=== PATIENT | female | born 1985 | race Caucasian/White ===

== ENCOUNTER 2018-05-03 11:09 | Outpatient (CLI) | payer OTHER ==
[2018-05-03 11:36] VITALS: BP 106/67; PULSE 67; RESP 16; TEMP 98.3
--- NOTE | 2018-06-20 10:52 | P.MSEPDOC ---
Presenting Problems - Arrival Data Date of Arrival on Unit: 05/03/18 Time of Arrival on Unit: 11:18 Mode of Transport: Ambulatory - Complaint OB-Reason for Admission/Chief Complaint: Other Comment: pt c/o cramping and questionable rom. pt states she felt a pop yesterday and had a little bit of fluid but pt denies any leaking at this time Medical History - Information : 5 Para: 4 Term: 4 : 0 Abortions: Spontaneous or Elective: 0 Number of Living Children: 4 - Gestational Age Gestational Age by LAURI (wks/days): 31 Weeks and 4 Days Review of Systems - Review of Systems Constitutional: No problems Breast: No problems ENT: No problems Cardiovascular: No problems Respiratory: No problems Gastrointestinal: No problems Genitourinary: No problems Musculoskeletal: No problems Neurological: No problems Skin: No problems Vital Signs - Temperature Temperature: 98.3 F Temperature Source: Oral - Pulse Right Brachial Pulse Rate: 67 Pulse Assessment Method: Automatic Cuff - Respirations Respiratory Rate: 16 Oxygen Delivery Method: Room Air O2 Sat by Pulse Oximetry: 100 - Blood Pressure Right Arm Blood Pressure: 106/67 Blood Pressure Mean: 80 Blood Pressure Source: Automatic Cuff Medical Screen Scoring (Pre) - Cervical Exam Dilation: Exam Deferred Effacement: Exam Deferred Membranes: Intact - Uterine Contractions Frequency: N/A Duration: N/A Intensity: N/A - Maternal Vital Signs Maternal Temperature: N/A Maternal Blood Pressure: N/A Signs of Preeclampsia: N/A Maternal Respirations: N/A - Pain Assessment Pain Scale Used: Numeric (1 - 10) Pain Intensity: 5 Pain Management Goal: 2 Pain Description: Throbbing Pain Frequency: Occasional Pain Duration: 45 Pain Duration Units: Minutes Pain Behavior: Vocalization Pain Aggravating Factors: Position Non-Pharmacological Interventions: Relaxation Technique - Maternal Trauma Maternal Trauma: N/A - Total Score Total Score (Pre): 0 Medical Screen Scoring (Post) - Cervical Exam Dilation: Exam Deferred Effacement: Exam Deferred Membranes: Intact - Uterine Contractions Frequency: N/A Duration: N/A Intensity: N/A - Maternal Vital Signs Maternal Temperature: N/A Maternal Blood Pressure: N/A Signs of Preeclampsia: N/A Maternal Respirations: N/A - Assessment Heart Rate: 140 Heart Rate - NICHD Category: Category I (Normal) = 0 NST: Reactive Position: N/A Station: N/A - Total Score Total Score (Post): 0 - Post Treatment Level of Risk Post Treatment Level of Risk: Low (0-5) Physician Notification (Post) - Physician Notified Physician Notified Date: 05/03/18 Physician Notified Time: 12:25 Spoke With: dr plummer New Order Received: Yes - Notification Comment Comment: amnisure negative reactive nst. no contractions. may discharge to home with instructions Disposition - Disposition OB Disposition: Discharge to home Discharge Date: 05/03/18 Discharge Time: 12:33 I agree with the RN Medical Screening Exam: Yes Risk & Benefit of care provided described in d/c instruction: Yes Diagnosis: FALSE LABOR BEFORE 37 COMPLETED WEEKS OF GEST, THIRD TRI
== END 2018-05-03 12:33 | disposition home or self-care (01) ==
LOC: FBPOP 11:09
PROVIDERS: ATTEND Obstetrics & Gynecology Obstetrics
DX: O47.03 False labor before 37 completed weeks of gestation, third trimester (principal); Z3A.31 31 weeks gestation of pregnancy
CPT/HCPCS: 59025; 84112; 99213

== ENCOUNTER 2018-05-15 13:27 | Emergency (ER) | payer OTHER ==
[2018-05-15 13:32] VITALS: RESP 18; TEMP 98.2
--- NOTE | 2018-05-15 14:22 | US ---
EXAMINATION TYPE: US venous doppler duplex LE RT DATE OF EXAM: 05/15/2018 2:14 PM COMPARISON: NONE CLINICAL HISTORY: Pain. right leg pain and ankle swelling SIDE PERFORMED: Right TECHNIQUE: The lower extremity deep venous system is examined utilizing real time linear array sonog vitaliy with graded compression, doppler sonography and color-flow sonography. VESSELS IMAGED: External Iliac Vein (EIV) Common Femoral Vein Deep Femoral Vein Greater Saphenous Vein * Femoral Vein Popliteal Vein Proximal Calf Veins (* superficial vessels) Right Leg: Negative for DVT Grayscale, color doppler, spectral doppler imaging performed of the deep veins of the right lower ext remity. There is normal flow, compressibility, vascular waveforms. IMPRESSION: No ultrasound evidence for acute DVT in the right lower extremity.
--- NOTE | 2018-05-15 14:44 | ED ---
Lower Extremity Injury HPI - General Chief Complaint: Extremity Injury, Lower Stated Complaint: possible blot clot in leg, 8 months Time Seen by Provider: 05/15/18 13:36 Source: patient Mode of arrival: ambulatory Limitations: no limitations - History of Present Illness Initial Comments: 32-year-old female 33 weeks presenting for bruising behind right knee times one day. Patient states she noticed bruising behind her right knee as well as some mild swelling of the right ankle. She states the area was tender to palpation behind the knee. Patient denies any injury or trauma. Patient denies any chest pain, shortness of breath, cough, hemoptysis, dyspnea, dyspnea on exertion nausea, vomiting, abdominal pain or any other associated symptoms. Patient states she was concerned about a blood clot and presented to her primary care provider for evaluation. She was sent to the emergency department for further imaging. Upon arrival patient's blood pressure within normal limits. Patient appears well, ambulates without difficulty. Remainder of ROS is negative, atient denies any recent fever, chills, back pain, numbness or tingling, dysuria or hematuria, constipation or diarrhea, headaches or visual changes, or any other complaints. - Related Data Home Medications Medication Instructions Recorded Confirmed No Known Home Medications 05/03/18 05/15/18 Allergies Allergy/AdvReac Type Severity Reaction Status Date / Time Penicillins Allergy Unknown Verified 05/15/18 13:49 Review of Systems ROS Statement: Those systems with pertinent positive or pertinent negative responses have been documented in the HPI. ROS Other: All systems not noted in ROS Statement are negative. Past Medical History Past Medical History: No Reported History Additional Past Medical History / Comment(s): LOW BLOOD SUGAR History of Any Multi-Drug Resistant Organisms: None Reported Past Surgical History: Tonsillectomy Additional Past Surgical History / Comment(s): ADENOIDS Past Psychological History: No Psychological Hx Reported Smoking Status: Former smoker Past Alcohol Use History: None Reported Past Drug Use History: None Reported General Exam - General Exam Comments Initial Comments: General: The patient is awake and alert, in no distress, and does not appear acutely ill. Eye: Pupils are equal, round and reactive to light, extra-ocular movements are intact. No nystagmus. There is normal conjunctiva bilaterally. No signs of icterus. Ears, nose, mouth and throat: There are moist mucous membranes and no oral lesions. Neck: The neck is supple, there is no tenderness or JVD. Cardiovascular: There is a regular rate and rhythm. No murmur, rub or gallop is appreciated. Respiratory: Lungs are clear to auscultation, respirations are non-labored, breath sounds are equal. No wheezes, stridor, rales, or rhonchi. Musculoskeletal: Normal ROM, no tenderness. Strength 5/5. Sensation intact. DP pulses equal bilaterally 2+. Small area of ecchymosis of popliteal region of right LE. Faint. Tender to touch, no mass. Neurological: A&O x 3. CN II-XII intact, There are no obvious motor or sensory deficits. Coordination appears grossly intact. Speech is normal. Skin: Skin is warm and dry and no rashes or lesions are noted. No noted lower extremity edema. No soft tissue swelling. Psychiatric: Cooperative, appropriate mood & affect, normal judgment. Limitations: no limitations Course Vital Signs 05/15/18 05/15/18 13:30 16:31 Temperature 98.2 F Pulse Rate 83 76 Respiratory 18 18 Rate Blood Pressure 99/65 100/63 O2 Sat by Pulse 99 100 Oximetry Medical Decision Making - Medical Decision Making NEGATIVE FOR DVT. NEGATIVE HOMANS SIGN. NO LOWER EXTREMITY EDEMA NOTED ON EXAM. THERE IS SMALL AREA OF ECCHYMOSIS IN THE RIGHT POPLITEAL REGION. PATIENT 'S LABS UNREMARKABLE, CONSISTENT WITH THIRD TRIMESTER . PATIENT DENIES ANY ABDOMINAL PAIN CRAMPING. BLOOD PRESSURE WITHIN NORMAL LIMITS. PATIENT BE DISCHARGED WITH FOLLOW-UP WITH PRIMARY CARE PROVIDER WE[facility]/ [facility] REGENERATOR SCHEDULED. IF SYMPTOMS PERSIST I DID RECOMMEND REPEAT DUPLEX ULTRASOUND IN 1-2 WEEKS. PATIENT IS AGREEABLE PLAN AND DISCHARGE. DENIES QUESTIONS AT THIS TIME. CASE WAS DISCUSSED WITH ATTENDING PROVIDER DR. SEWELL WHO DID REVIEW IMAGING reports, and laboratory studies. Patient discharged stable condition appearing well, with all return parameters. - Lab Data Result diagrams: 05/15/18 15:07 05/15/18 15:07 Lab Results 05/15/18 05/15/18 05/15/18 Range/Units 15:07 15: 15:07 WBC 6.4 (3.8-10.6) k/uL RBC 3.51 L (3.80-5.40) m/uL Hgb 10.9 L (11.4-16.0) gm/dL Hct 32.0 L (34.0-46.0) % MCV 91.3 (80.0-100.0) fL MCH 31.0 (25.0-35.0) pg MCHC 34.0 (31.0-37.0) g/dL RDW 13.4 (11.5-15.5) % Plt Count 140 L (150-450) k/uL Neutrophils % 71 % Lymphocytes % 21 % Monocytes % 5 % Eosinophils % 1 % Basophils % 0 % Neutrophils # 4.6 (1.3-7.7) k/uL Lymphocytes # 1.3 (1.0-4.8) k/uL Monocytes # 0.3 (0-1.0) k/uL Eosinophils # 0.0 (0-0.7) k/uL Basophils # 0.0 (0-0.2) k/uL PT 9.5 (9.0-12.0) sec INR 0.9 (<1.2) APTT 23.1 (22.0-30.0) sec Sodium 135 L (137-145) mmol/L Potassium 4.3 (3.5-5.1) mmol/L Chloride 109 H (98-107) mmol/L Carbon Dioxide 22 (22-30) mmol/L Anion Gap 4 mmol/L BUN 6 L (7-17) mg/dL Creatinine 0.49 L (0.52-1.04) mg/dL Est GFR (CKD-EPI)AfAm >90 (>60 ml/min/1.73 sqM) Est GFR (CKD-EPI)NonAf >90 (>60 ml/min/1.73 sqM) Glucose 79 (74-99) mg/dL Calcium 8.4 (8.4-10.2) mg/dL Total Bilirubin 0.6 (0.2-1.3) mg/dL AST 20 (14-36) U/L ALT 25 (9-52) U/L Alkaline Phosphatase 79 (38-126) U/L Total Protein 5.6 L (6.3-8.2) g/dL Albumin 3.0 L (3.5-5.0) g/dL Disposition Clinical Impression: Ecchymosis Disposition: HOME SELF-CARE Condition: Good Additional Instructions: Please follow-up with family doctor in the next 2 days, if symptoms persist please repeat US of ARTIS in 1-2 weeks. Please return to emergency room if the symptoms increase or worsen or for any other concerns, as discussed. Is patient prescribed a controlled substance at d/c from ED?: No Referrals: Sharita Navarro MD [Primary Care Provider] - 1-2 days Time of Disposition: 16:00
[2018-05-15 15:28] LABS: Basophils % (A) 0 %; Eosinophils % (A) 1 %; HGB 10.9 gm/dL (11.4-16.0); Lymphocytes # (A) 1.3 k/uL (1.0-4.8); Lymphocytes % (A) 21 %; MCV 91.3 fL (80.0-100.0); Mean Platelet Volume 8.7; Monocytes # (A) 0.3 k/uL (0-1.0); Monocytes % (A) 5 %; Neutrophils # (A) 4.6 k/uL (1.3-7.7); Neutrophils % (A) 71 %; Platelet Count 140 k/uL (150-450); RBC 3.51 m/uL (3.80-5.40); RDW 13.4 % (11.5-15.5); WBC 6.4 k/uL (3.8-10.6)
[2018-05-15 15:40] LABS: INR 0.9 (<1.2); Partial Thromboplastin Time 23.1 sec (22.0-30.0); Prothrombin Time 9.5 sec (9.0-12.0)
[2018-05-15 15:44] LABS: ALT 25 U/L (9-52); AST 20 U/L (14-36); Alkaline Phosphatase 79 U/L (38-126); Anion Gap 4 mmol/L; Blood Urea Nitrogen 6 mg/dL (7-17); Calcium 8.4 mg/dL (8.4-10.2); Carbon Dioxide 22 mmol/L (22-30); Chloride 109 mmol/L (98-107); Glucose 79 mg/dL (74-99); Potassium 4.3 mmol/L (3.5-5.1); Sodium 135 mmol/L (137-145); Total Bilirubin 0.6 mg/dL (0.2-1.3); Total Protein 5.6 g/dL (6.3-8.2)
[2018-05-15 16:33] VITALS: BP 100/63; PULSE 76
== END 2018-05-15 16:31 | disposition home or self-care (01) ==
LOC: EC 13:27
DX: O99.89 Other specified diseases and conditions complicating pregnancy, childbirth and the puerperium (principal); R23.3 Spontaneous ecchymoses; Z3A.33 33 weeks gestation of pregnancy; Z88.0 Allergy status to penicillin; Z87.891 Personal history of nicotine dependence
CPT/HCPCS: 36415; 80053; 85025; 85610; 85730; 99283

== ENCOUNTER 2018-06-16 01:35 | Outpatient (CLI) | payer OTHER ==
[2018-06-16 03:29] VITALS: BP 120/74; PULSE 80; RESP 16; TEMP 96.8
--- NOTE | 2018-07-20 11:23 | P.MSEPDOC ---
Presenting Problems - Arrival Data Date of Arrival on Unit: 06/16/18 Time of Arrival on Unit: 01:35 Mode of Transport: Ambulatory Vital Signs - Temperature Temperature: 96.8 F Temperature Source: Temporal Artery Scan - Pulse Right Brachial Pulse Rate: 80 Pulse Assessment Method: Automatic Cuff - Respirations Respiratory Rate: 16 Oxygen Delivery Method: Room Air O2 Sat by Pulse Oximetry: 100 - Blood Pressure Right Arm Blood Pressure: 120/74 Blood Pressure Mean: 89 Blood Pressure Source: Automatic Cuff Medical Screen Scoring (Post) - Cervical Exam Dilation: 1-3 cm = 1 Membranes: Intact - Uterine Contractions Frequency: N/A Duration: N/A Intensity: N/A - Maternal Vital Signs Maternal Temperature: N/A - Pain Assessment Pain Location and Character: Abdomen Pain Scale Used: Numeric (1 - 10) Pain Intensity: 3 Pain Management Goal: 0 Pain Description: *Acute, Cramping Pain Radiation Location: no Pain Frequency: Intermittent Pain Duration: 3 Pain Duration Units: Hours Pain Behavior: Vocalization Pain Aggravating Factors: Contractions - Assessment Heart Rate: 115 Heart Rate - NICHD Category: Category I (Normal) = 0 NST: Reactive Position: N/A Station: N/A - Total Score Total Score (Post): 1 - Post Treatment Level of Risk Post Treatment Level of Risk: Low (0-5) Physician Notification (Post) - Physician Notified Physician Notified Date: 06/16/18 Physician Notified Time: 02:53 Spoke With: Yari New Order Received: Yes (follow up as scheduled 06/22) Disposition - Disposition OB Disposition: Discharge to home, Written follow up instructions reviewed Discharge Date: 06/16/18 Discharge Time: 02:55 I agree with the RN Medical Screening Exam: Yes Risk & Benefit of care provided described in d/c instruction: Yes Diagnosis: FALSE LABOR BEFORE 37 COMPLETED WEEKS OF GEST, THIRD TRI
== END 2018-06-16 02:55 | disposition home or self-care (01) ==
LOC: FBPOP 01:35
PROVIDERS: ATTEND Obstetrics & Gynecology
DX: O47.03 False labor before 37 completed weeks of gestation, third trimester (principal); Z3A.00 Weeks of gestation of pregnancy not specified
CPT/HCPCS: 59025; 99213

== ENCOUNTER 2018-06-23 22:41 | Outpatient (CLI) | payer OTHER ==
[2018-06-23] MEDS ORDERED: LIDOCAINE 1% INJ 10MG/ML (20 ML MDV) SQ ONE (23:22)
[2018-06-23] MEDS ORDERED: LACTATED RINGERS 1,000 ML IV SCH (23:30)
[2018-06-23 23:54] VITALS: BP 123/77; PULSE 85; RESP 18; TEMP 97.3
--- NOTE | 2018-07-21 11:39 | P.MSEPDOC ---
Presenting Problems - Arrival Data Date of Arrival on Unit: 06/23/18 Time of Arrival on Unit: 22:41 Mode of Transport: Ambulatory - Complaint OB-Reason for Admission/Chief Complaint: Possible Onset of Labor, Rule Out SROM Comment: pressure, contractions and possible SROM Medical History - Information : 6 Para: 4 Term: 4 : 0 Abortions: Spontaneous or Elective: 1 Number of Living Children: 4 - Gestational Age Gestational Age by LAURI (wks/days): 38 Weeks and 6 Days Review of Systems - Review of Systems Constitutional: No problems Breast: No problems ENT: No problems Cardiovascular: No problems Respiratory: No problems Gastrointestinal: No problems Genitourinary: No problems Musculoskeletal: No problems Neurological: No problems Skin: No problems Vital Signs - Temperature Temperature: 97.3 F Temperature Source: Oral - Pulse Right Brachial Pulse Rate: 85 Pulse Assessment Method: Automatic Cuff - Respirations Respiratory Rate: 18 - Blood Pressure Right Arm Blood Pressure: 123/77 Blood Pressure Mean: 92 Blood Pressure Source: Automatic Cuff Medical Screen Scoring (Pre) - Cervical Exam Dilation: 1-3 cm = 1 Effacement: More than 50% = 2 Membranes: Intact - Uterine Contractions Frequency: > 5 minutes apart = 1 Duration: N/A Intensity: N/A - Maternal Vital Signs Maternal Temperature: N/A Maternal Blood Pressure: N/A Signs of Preeclampsia: N/A, Headache = 1 Maternal Respirations: N/A - Pain Assessment Pain Location and Character: Pelvic Pain Scale Used: Numeric (1 - 10) Pain Intensity: 7 Pain Description: Pressure Pain Radiation Location: none Pain Frequency: Intermittent Pain Duration: 1 Pain Duration Units: Hours - Maternal Trauma Maternal Trauma: N/A - Assessment Baseline FHR: 130 Heart Rate - NICHD Category: Category I (Normal) = 0 NST: Reactive Position: N/A Station: N/A - Total Score Total Score (Pre): 5 - Level of Risk Level of Risk: Low (0-5) Physician Notification (Pre) - Physician Notified Physician Notified Date: 06/23/18 Physician Notified Time: 23:13 Physician/Practitioner Notifed:: Dr. Duran Spoke With: New Order Received: Yes - Notification Comment Comment: give 1 liter of LR, recheck cervical exam in an hour Medical Screen Scoring (Post) - Cervical Exam Dilation: 1-3 cm = 1 Effacement: More than 50% = 2 Membranes: Intact - Uterine Contractions Frequency: > 5 minutes apart = 1 Duration: N/A Intensity: N/A - Maternal Vital Signs Maternal Temperature: N/A Maternal Blood Pressure: N/A Signs of Preeclampsia: N/A Maternal Respirations: N/A - Pain Assessment Pain Location and Character: Pelvic Pain Scale Used: Numeric (1 - 10) Pain Intensity: 7 Pain Description: Pressure - Maternal Trauma Maternal Trauma: N/A - Assessment Heart Rate: 120 Heart Rate - NICHD Category: Category I (Normal) = 0 NST: Reactive Position: N/A Station: N/A - Total Score Total Score (Post): 4 - Post Treatment Level of Risk Post Treatment Level of Risk: Low (0-5) Physician Notification (Post) - Physician Notified Physician Notified Date: 06/24/18 Physician Notified Time: 00:03 Physician/Practitioner Notified:: Dr. Duran Spoke With: Dr. Duran New Order Received: Yes - Notification Comment Comment: pt refused IVF, orders to discharge home, return for IOL on Monday or sooner if having s/s of labor Disposition - Disposition OB Disposition: Triage, Discharge to home, Written follow up instructions reviewed Discharge Date: 06/24/18 Discharge Time: 00:10 I agree with the RN Medical Screening Exam: Yes Risk & Benefit of care provided described in d/c instruction: Yes Diagnosis: FALSE LABOR AT OR AFTER 37 COMPLETED WEEKS OF GESTATION
== END 2018-06-24 00:10 | disposition home or self-care (01) ==
LOC: FBPOP 22:41
PROVIDERS: ATTEND Obstetrics & Gynecology Obstetrics
DX: O47.1 False labor at or after 37 completed weeks of gestation (principal); Z3A.38 38 weeks gestation of pregnancy
CPT/HCPCS: 59025; 84112; 99213

== ENCOUNTER 2018-06-25 06:00 | Inpatient (IN) | payer OTHER ==
[2018-06-25] MEDS ORDERED: LIDOCAINE 1% 20 ML VIAL (10MG/ML) FOR IV START INTRADERMA PRN (06:22)
[2018-06-25] MEDS ORDERED: OXYTOCIN 10 UNIT/ML 1 ML VIAL IM PRN (06:22)
[2018-06-25] MEDS ORDERED: METHYLERGONOVINE 0.2 MG/ML 1 ML AMP IM PRN (06:22)
[2018-06-25] MEDS ORDERED: CARBOPROST TROMETHAMINE 250 MCG/ML 1 ML AMP IM PRN (06:22)
[2018-06-25] MEDS ORDERED: LIDOCAINE 0.5% (PF) 5 MG/ML (50 ML SDV) SQ PRN (06:22)
[2018-06-25] MEDS ORDERED: TERBUTALINE 1 MG/ML VIAL SQ PRN (06:22)
[2018-06-25] MEDS ORDERED: OXYTOCIN 30 UNITS/500 ML NS 30 UNIT in SALINE 1 500ML.BAG IV SCH (06:30)
[2018-06-25 06:35] VITALS: BMI 26.3
[2018-06-25] MEDS: LACTATED RINGERS 1,000 ML IV SCH ×2 (07:02→09:56)
[2018-06-25 07:09] LABS: Basophils % (A) 0 %; Eosinophils # (A) 0.1 k/uL (0-0.7); Eosinophils % (A) 1 %; HCT 32.6 % (34.0-46.0); HGB 10.9 gm/dL (11.4-16.0); Lymphocytes # (A) 1.6 k/uL (1.0-4.8); Lymphocytes % (A) 21 %; MCH 30.3 pg (25.0-35.0); MCHC 33.6 g/dL (31.0-37.0); Mean Platelet Volume 8.6; Monocytes # (A) 0.4 k/uL (0-1.0); Monocytes % (A) 6 %; Neutrophils # (A) 5.3 k/uL (1.3-7.7); Neutrophils % (A) 70 %; Platelet Count 147 k/uL (150-450); RBC 3.62 m/uL (3.80-5.40); RDW 13.3 % (11.5-15.5); WBC 7.5 k/uL (3.8-10.6)
--- NOTE | 2018-06-25 08:29 | P.HPOB ---
History of Present Illness H&P Date: 06/25/18 Chief Complaint: IUP at 39 and 1/sevenths weeks This is a pleasant 32-year-old 6 para 4014 at 39 and one sevenths weeks with an estimated due date of 317 based on last menstrual period and consistent with a 20 week ultrasound. Patient was been receiving routine care with myself since the first trimester. Patient presents for elective induction of labor. Patient did struggle with contractions throughout the otherwise uncomplicated next On blood work her blood type is noted to be A-, rubella immune, RPR nonreactive, hepatitis surface engine negative, HIV negative, she did fail her 1 hour Glucola but subsequently passed her 3 hour GTT, program was administered on 04/09/18 group beta strep was negative on 05/31 Review of Systems Constitutional: Denies chills, Denies fatigue, Denies fever Ears, nose, mouth and throat: Denies headache Cardiovascular: Reports leg edema Respiratory: Denies dyspnea Gastrointestinal: Denies constipation, Denies diarrhea, Denies nausea, Denies vomiting Genitourinary: Reports Past Medical History Past Medical History: No Reported History Additional Past Medical History / Comment(s): LOW BLOOD SUGAR History of Any Multi-Drug Resistant Organisms: None Reported Past Surgical History: Tonsillectomy Additional Past Surgical History / Comment(s): ADENOIDS Past Anesthesia/Blood Transfusion Reactions: No Reported Reaction Past Psychological History: No Psychological Hx Reported Smoking Status: Former smoker Past Alcohol Use History: None Reported Past Drug Use History: None Reported - Past Family History Mother Family Medical History: No Reported History Medications and Allergies Home Medications Medication Instructions Recorded Confirmed Type No Known Home Medications 05/03/18 06/25/18 History Allergies Allergy/AdvReac Type Severity Reaction Status Date / Time Penicillins Allergy Unknown Verified 06/25/18 06:21 Exam Osteopathic Statement: *. No significant issues noted on an osteopathic structural exam other than those noted in the History and Physical/Consult. Vital Signs Temp Pulse Resp BP Pulse Ox 06/25/18 06:31 97.6 F 78 15 110/70 97 Intake and Output 06/24/18 06/25/18 06/25/18 22:59 06:59 14:59 Other: Weight 73.936 kg Targeted physical exam was performed on this date in general this is a well- nourished well-developed female in no acute distress. Patient given strict nonlabored breathing in her rate is noted to be regular in rhythm, abdomen is noted to be gravid and appropriate for gestational age, on cervical exam she is 1/80/-2 amniotomy was performed and clear fluid was obtained. heart tones are noted to be reactive and she is phu every 2-3 minutes. Results Result Diagrams: 06/25/18 07:00 Abnormal Lab Results - Last 24 Hours (Table) 06/25/18 Range/Units 07:00 RBC 3.62 L (3.80-5.40) m/uL Hgb 10.9 L (11.4-16.0) gm/dL Hct 32.6 L (34.0-46.0) % Plt Count 147 L (150-450) k/uL Assessment and Plan (1) Term Current Visit: Yes Status: Acute Code(s): Z34.80 - ENCOUNTER FOR SUPRVSN OF NORMAL , UNSP TRIMESTER SNOMED Code(s): 58019393 Plan: Patient is admitted to labor and delivery for Pitocin induction of labor anticipate spontaneous vaginal delivery later this point.
[2018-06-25] MEDS ORDERED: BUTORPHANOL 1 MG/ML 1 ML VIAL IV PRN (08:38)
[2018-06-25] MEDS ORDERED: SODIUM CHLORIDE 0.9% 100 ML BAG ONE (10:01)
[2018-06-25] MEDS ORDERED: ROPIVACAINE 5MG/ML 20ML VIAL ONE (10:01)
[2018-06-25] MEDS ORDERED: fentaNYL (PF) 50 MCG/ML 5 ML AMP ONE (10:01)
[2018-06-25] MEDS ORDERED: ZOLPIDEM 5 MG TAB PO PRN (15:06)
[2018-06-25] MEDS ORDERED: HYDROcodone/APAP 5-325MG 1 EACH TAB PO PRN (15:06)
[2018-06-25] MEDS ORDERED: LANOLIN CREAM 5 GM TUBE TOPICAL PRN (15:06)
[2018-06-25] MEDS ORDERED: SIMETHICONE 80 MG CHEWABLE PO PRN (15:06)
[2018-06-25] MEDS ORDERED: HYDROCORTISONE 2.5% RECTAL CREAM 30 GM TUBE RECTAL PRN (15:06)
[2018-06-25] MEDS ORDERED: diphenhydrAMINE 50 MG CAP PO PRN (15:06)
[2018-06-25] MEDS ORDERED: diphenhydrAMINE 50 MG/ML 1 ML VIAL IVP PRN ×2 (15:06)
[2018-06-25] MEDS ORDERED: ACETAMINOPHEN TAB 325 MG TAB PO PRN (15:06)
[2018-06-25] MEDS ORDERED: WITCH HAZEL 1 EACH MED..PAD TOPICAL PRN (15:06)
[2018-06-25] MEDS ORDERED: BENZOCAINE/MENTHOL SPRAY 1 GM/SPRAY AEROSOL TOPICAL PRN (15:06)
[2018-06-25] MEDS ORDERED: diphenhydrAMINE 25 MG CAP PO PRN (15:06)
[2018-06-25] MEDS ORDERED: OXYTOCIN 20 UNITS/1000 ML NS 1,000 ML IV SCH (15:15)
[2018-06-25] MEDS: IBUPROFEN 600 MG TAB PO PRN (16:04)
[2018-06-25] MEDS: SENNOSIDES-DOCUSATE SODIUM 1 EACH TAB PO SCH (23:25)
[2018-06-25] MEDS ORDERED: Rhogam IMMUNE GLOBULIN 1,500 UNIT/1 ML IM ONE (23:54)
[2018-06-26] MEDS: IBUPROFEN 600 MG TAB PO PRN ×2 (01:23→08:32)
[2018-06-26 07:35] LABS: Basophils % (A) 0 %; Eosinophils # (A) 0.1 k/uL (0-0.7); Eosinophils % (A) 1 %; HCT 30.4 % (34.0-46.0); HGB 10.1 gm/dL (11.4-16.0); Lymphocytes # (A) 1.5 k/uL (1.0-4.8); Lymphocytes % (A) 15 %; MCH 30.7 pg (25.0-35.0); MCHC 33.4 g/dL (31.0-37.0); MCV 91.7 fL (80.0-100.0); Mean Platelet Volume 8.2; Monocytes # (A) 0.4 k/uL (0-1.0); Monocytes % (A) 4 %; Neutrophils % (A) 79 %; Platelet Count 145 k/uL (150-450); RBC 3.31 m/uL (3.80-5.40); RDW 13.5 % (11.5-15.5); WBC 10.2 k/uL (3.8-10.6)
--- NOTE | 2018-06-26 08:23 | P.DS ---
Providers Date of admission: 06/25/18 06:02 Expected date of discharge: 06/26/18 Attending physician: Caryn Duran Primary care physician: Sharita Navarro - Discharge Diagnosis(es) (1) Term Current Visit: Yes Status: Acute (2) Status post vaginal delivery Current Visit: Yes Status: Acute Hospital Course: This is a 32-year-old 6 para 4014 at 39-0/7 weeks that presented to labor and delivery for elective induction of labor on 06/25/18. Patient was started on Pitocin for induction of labor amniotomy was performed and clear fluid was obtained. Patient progressed through labor became uncomfortable and requested epidural placement by anesthesia. This was placed without difficulty by the anesthesia. Patient progressed to complete began pushing and had a normal spontaneous vaginal delivery of a viable female infant at 1457, weight of 6 lbs. 14 oz. with Apgars of 8 and 9 at one and 5 minutes respectively. Patient's course has been uneventful. She is ambulating and voiding without difficulty. She is tolerating regular diet without nausea or vomiting. She is breast-feeding without difficulty in addition. She does wish discharge home at 24 hours. Patient Condition at Discharge: Good Plan - Discharge Summary New Discharge Prescriptions: No Action No Known Home Medications Discharge Medication List No Known Home Medications 05/03/18 [History]
--- NOTE | 2018-06-26 08:24 | P.PROBDLV ---
Vaginal Delivery Note - . Vaginal Delivery Note: This is a pleasant 32-year-old 6 para 4014 at 39-0/7 weeks that presented to labor and delivery for elective induction of labor. Patient was begun on Pitocin induction, amniotomy was performed and clear fluid was obtained. Patient progressed became uncomfortable requested epidural which was placed by anesthesia without difficulty. Patient pressed to complete began pushing and had a normal spontaneous vaginal delivery of a viable female at 1457, weight of 6 lbs. 14 oz. with Apgars of 8 and 9 at one and 5 minutes or sexually. Afterwards the umbilical cord was doubly clamped and cut and the placenta was delivered spontaneously intact with a three-vessel cord being noted. The vaginal vault was inspected and no lacerations were noted. The uterus is very firm and below the umbilicus blood loss for this delivery was noted to be 300 mL. and patient tolerated delivery well and are resting comfortably.
[2018-06-26] MEDS: SENNOSIDES-DOCUSATE SODIUM 1 EACH TAB PO SCH (08:32)
[2018-06-26 09:42] VITALS: BP 98/66; PULSE 101; RESP 18; TEMP 98.1
== END 2018-06-26 17:00 | disposition home or self-care (01) | DRG 807 ==
LOC: 4FBP 06:02
PROVIDERS: ADMIT Obstetrics & Gynecology Obstetrics; ATTEND Obstetrics & Gynecology Obstetrics
PROC: 10E0XZZ Delivery of Products of Conception, External Approach (ICD-10-PCS; principal; 2018-06-25)
PROC: 3E033VJ Introduction of Other Hormone into Peripheral Vein, Percutaneous Approach (ICD-10-PCS; 2018-06-25)
PROC: 10907ZC Drainage of Amniotic Fluid, Therapeutic from Products of Conception, Via Natural or Artificial Opening (ICD-10-PCS; 2018-06-25)
PROC: 00HU33Z Insertion of Infusion Device into Spinal Canal, Percutaneous Approach (ICD-10-PCS; 2018-06-25)
PROC: 3E0R3BZ Introduction of Anesthetic Agent into Spinal Canal, Percutaneous Approach (ICD-10-PCS; 2018-06-25)
PROC: 3E0234Z Introduction of Serum, Toxoid and Vaccine into Muscle, Percutaneous Approach (ICD-10-PCS; 2018-06-25)
DX: O26.893 Other specified pregnancy related conditions, third trimester (principal); Z37.0 Single live birth; Z3A.39 39 weeks gestation of pregnancy; Z67.11 Type A blood, Rh negative; O60.20X0 Term delivery with preterm labor, unspecified trimester, not applicable or unspecified; Z87.891 Personal history of nicotine dependence; Z88.0 Allergy status to penicillin
CPT/HCPCS: 85025; 85461; 86850; 86870; 86880; 86900; 86901

== ENCOUNTER → 2023-01-03 | Outpatient (CLI) | payer OTHER ==
--- NOTE | 2023-01-03 09:17 | MR ---
EXAMINATION TYPE: MR knee RT wo con DATE OF EXAM: 01/03/2023 COMPARISON: None HISTORY: None TECHNIQUE: Multiplanar, multisequence imaging of the right knee is performed without IV contrast. FINDINGS: The osseous structures are intact there is no bone contusion or fracture. There is physiologic fluid within the joint space. The articular cartilages are normal. The cruciate and collateral ligaments are intact. There is a small tear in the body of the medial meniscus extending to the inferior surface directed t owards the capsular attachment. The lateral meniscus is intact. The biceps tendon and patellar tendon are intact. There is no evidence of bursitis. IMPRESSION: Tiny tear in the body of the medial meniscus into the capsular attachment. No other significant abnor mality seen.
== END | disposition home or self-care (01) ==
LOC: RADMRIMAIN 06:09
PROVIDERS: ATTEND Orthopaedic Surgery
DX: M23.8X1 Other internal derangements of right knee (principal); M25.561 Pain in right knee